=== PATIENT | male | born 1955 | race Caucasian/White ===

== ENCOUNTER 2018-05-02 16:44 | Inpatient (IN) ==
[2018-05-02] MEDS ORDERED: 0.9 % Sodium Chloride 1,000 ML IVC ONE (17:05)
--- NOTE | 2018-05-02 17:40 | Emergency Department Note ---
Disposition Clinical Impression: Alcoholic liver disease Ascites Qualifiers: Ascites type: due to alcoholic cirrhosis Qualified Code(s): K70.31 - Alcoholic cirrhosis of liver with ascites Alcoholic cirrhosis Qualifiers: Ascites presence: with ascites Qualified Code(s): K70.31 - Alcoholic cirrhosis of liver with ascites Disposition: Admitted As Inpatient Condition: Good Referrals: NONE,PCP [Non-Partnered Physician] - Forms: ED Satisfaction Letter, Work/School Release Time of Disposition: 19:42 General Adult HPI - General Chief complaint: ED Abdominal Pain Stated complaint: Ascities Time Seen by Provider: 05/02/18 16:53 Source: patient, family Limitations: no limitations Nursing Notes Reviewed: Yes Vital Signs Reviewed: Yes - History of Present Illness HPI Narrative: Complaining of being yellow and having a distended abdomen. Denies any fevers does report occasional chills. No cough. No chest pain. Does have shortness of breath associated with the pressure from his abdomen. Pain Scale: 0 - Related Data Home Medications Medication Instructions Recorded Confirmed No Known Home Drugs 05/02/18 05/02/18 Allergies Allergy/AdvReac Type Severity Reaction Status Date / Time No Known Allergies Allergy Verified 05/02/18 19:14 All systems ED: reviewed and negative except as stated. Constitutional: Reports: chills. Denies: fever ENT ED: Denies: congestion Cardiovascular: Denies: chest pain, palpitations, syncope Respiratory: Denies: cough, dyspnea Gastrointestinal: Denies: abdominal pain, nausea, vomiting, diarrhea, hematemesis, melena, hematochezia Genitourinary: Denies: urgency, dysuria, frequency Integumentary: Reports: other (Yellow color to skin). Denies: rash Past Medical History - Past Medical History Attestation: Yes The following information was validated with the patient. Source: patient Medical history: Reports: no medical history Psychiatric history: Reports: no psych history - Social History Smoking Status: Never smoker Alcohol use: Reports: heavy Drug use: Reports: none Physical Exam - General Limitations: no limitations General appearance: alert, in no apparent distress - Head Head exam: atraumatic, normocephalic, normal inspection - Eye Eye exam: Present: normal appearance, PERRL, EOMI - ENT ENT exam: normal exam, normal oropharynx, mucous membranes moist - Neck Neck exam: Present: normal inspection, full ROM, trachea midline - Chest Chest inspection: Present: normal inspection, symmetric chest wall rise - Respiratory Respiratory exam: Present: normal lung sounds bilaterally. Absent: respiratory distress, accessory muscle use - Cardiovascular Cardiovascular exam: Present: normal rhythm, tachycardia, normal heart sounds - Abdominal Exam Abdominal exam: Present: soft, distention, other (Fluid wave). Absent: guarding , rebound, Lund's sign, Rovsing's sign, tenderness at McBurney's Point - Extremities Exam Extremities exam: Present: normal inspection, full ROM, normal capillary refill , pedal edema. Absent: tenderness - Back Exam Back exam: Present: normal inspection, full ROM. Absent: tenderness - Neurological Exam Neurological exam: Present: alert, oriented X3 - Psychiatric Psychiatric exam: Present: normal affect, normal mood - Skin Skin exam: Present: warm, dry, intact, rash (Some small petechiae to his chest) , other (Jaundiced.) Course Course Narrative: Male patient presenting to emergency complaining of a yellow and having a large abdomen. Female patient at bedside states it is been going on for around 3 months. The patient denies any abdominal pain however he does report some shortness of breath associated with the pressure associated from his abdomen. He has never had to have his abdomen drain before. He does report excessive alcohol consumption of approximately 12 beers a day. He states he does not have a history of hepatitis as he was tested for this approximately 6 months ago. He is also reporting a generalized weakness over the past week. The friend at the bedside stating he is sleeping upwards to 20 hours a day. On exam patient is jaundiced. He has scleral jaundice as well as jaundice to his nipple line. He has a distended abdomen with a prominent fluid wave. Lung sounds are clear and heart tones are normal. He is tachycardic. I believe this is secondary to third spacing. We will provide patient with a liter of fluid as well as albumin. We will get a basic lab workup and CT patient's abdomen. I anticipate admission for the patient. - Reevaluation(s) Reevaluation #1: Patient has a large amount of ascites on scan. He is also jaundiced. We have started him on vancomycin and Zosyn. He is initially tachycardic however this resolved with 1 L of fluid. Also ordered him albumin. He has a lactic acidosis. As well as elevated liver enzymes and bilirubin. We have discussed the patient with GI and they state they will follow in the hospital. Patient is well-appearing when I go to reassess him in the room. He is sitting at bedside. We will admit him to the hospital. Time: 19:17 - Consultations Consultation #1: I spoke with GI. They state they will see the Pt in the hospital Time: 19:41 Consultation #2: Dr Tang accepted Pt in stable condition Time: 19:42 Vital Signs Temperature 99.0 F 05/02/18 16:46 Pulse Rate 149 05/02/18 16:46 Respiratory Rate 20 05/02/18 16:46 Blood Pressure 150/100 05/02/18 16:46 O2 Sat by Pulse Oximetry 96 05/02/18 16:46 Temperature 99.0 F 05/02/18 17:01 Pulse Rate 96 05/02/18 17:36 Respiratory Rate 18 05/02/18 17:36 Blood Pressure 130/69 05/02/18 17:36 O2 Sat by Pulse Oximetry 96 05/02/18 17:36 Oxygen Delivery Oxygen Delivery Room Air Medical Decision Making - Medical Records Medical records reviewed: Yes I reviewed the patient's medical records. - Lab Data Lab results reviewed: Yes I reviewed the patient's lab results. Result diagrams: 05/02/18 17:46 05/02/18 17:46 Lab Results 05/02/18 05/02/18 05/02/18 Range/Units 17:30 17:46 17:46 WBC 3.1 L (4.3-11.1) K/mcL RBC 3.87 L (4.19-5.50) M/mcL Hgb 13.7 (12.9-16.9) g/dL Hct 39.4 (37.5-50.1) % MCV 101.8 H (83.0-100.0) fL MCH 35.4 H (28.0-33.3) pg MCHC 34.8 (31.6-35.5) g/dL RDW 15.1 H (11.5-14.5) % Plt Count 49 L (140-400) K/mcL MPV 9.8 (9.4-12.4) fL Immature Gran % 0.6 (0-4) % Seg Neutrophils % 66.2 % Lymphocytes % 14.7 % Monocytes % 16.3 % Eosinophils % 0.6 % Basophils % 1.6 % Neutrophils # 2.1 (1.6-8.9) K/mcL Lymphocytes # 0.5 L (0.6-4.6) K/mcL Monocytes # 0.5 (0.0-1.3) K/mcL Eosinophils # 0.0 (0.0-0.6) K/mcL Basophils # 0.1 (0.0-0.2) K/mcL Platelet Estimate Marked Decrease L (Normal) Immature Plt Fraction 3.7 (1.1-6.1) % PT 18.5 H (9.4-12.1) Seconds INR 1.7 APTT 46.2 H (26.0-36.0) Seconds Sodium (136-145) mEq/L Potassium (3.5-5.1) mEq/L Chloride (98-107) mEq/L Carbon Dioxide (23-29) mEq/L BUN (8-23) mg/dL Creatinine (0.70-1.30) mg/dL Est GFR ( Amer) (> 60) Est GFR (Non-Af Amer) (> 60) BUN/Creatinine Ratio (6-26) Glucose (70-105) mg/dL Calculated Osmolality (280-300) Lactic Acid (0.5-2.2) mmol/L Calcium (8.6-10.3) mg/dL Total Bilirubin (0.3-1.0) mg/dL Direct Bilirubin (0.0-0.2) mg/dL Indirect Bilirubin (0.0-1.2) mg/dL AST (13-39) Units/L ALT (7-52) Units/L Alkaline Phosphatase (34-104) Units/L Serum Total Protein (6.4-8.9) g/dL Albumin (3.5-5.7) g/dL Globulin (2.4-3.5) g/dL Albumin/Globulin Ratio (1.1-2.2) Lipase (11-82) Units/L Urine Color [place] A (Yellow) Urine Clarity Cloudy A (Clear) Urine pH 5.5 (5.0-8.0) pH Units Ur Specific [place] 1.028 H (1.010-1.025) Urine Protein 30 H (Neg-Trace) mg/dL Urine Glucose (UA) Normal (Normal) mg/dL Urine Ketones 40 H (Negative) mg/dL Urine Blood Negative (Negative) Urine Nitrite Positive A (Negative) Urine Bilirubin Large H (Negative) Urine Urobilinogen 4.0 H (Normal) mg/dL Ur Leukocyte Esterase Small H (Negative) Urine Microscopic RBC 0-3 (0-3) per hpf Urine Microscopic WBC 0-3 (0-3) per hpf Ur Squamous Epith Cells Moderate H (None-Few) per lpf Urine Bacteria None Seen (None-Few) per hpf Hyaline Casts None Seen (None-Few) per lpf Urine Mucus Moderate H (Few) Ur Culture Indicated? YES A (NO) 05/02/18 05/02/18 Range/Units 17:46 17:46 WBC (4.3-11.1) K/mcL RBC (4.19-5.50) M/mcL Hgb (12.9-16.9) g/dL Hct (37.5-50.1) % MCV (83.0-100.0) fL MCH (28.0-33.3) pg MCHC (31.6-35.5) g/dL RDW (11.5-14.5) % Plt Count (140-400) K/mcL MPV (9.4-12.4) fL Immature Gran % (0-4) % Seg Neutrophils % % Lymphocytes % % Monocytes % % Eosinophils % % Basophils % % Neutrophils # (1.6-8.9) K/mcL Lymphocytes # (0.6-4.6) K/mcL Monocytes # (0.0-1.3) K/mcL Eosinophils # (0.0-0.6) K/mcL Basophils # (0.0-0.2) K/mcL Platelet Estimate (Normal) Immature Plt Fraction (1.1-6.1) % PT (9.4-12.1) Seconds INR APTT (26.0-36.0) Seconds Sodium 137 (136-145) mEq/L Potassium 3.6 (3.5-5.1) mEq/L Chloride 102 (98-107) mEq/L Carbon Dioxide 24 (23-29) mEq/L BUN 6 L (8-23) mg/dL Creatinine 0.53 L (0.70-1.30) mg/dL Est GFR ( Amer) > 60 (> 60) Est GFR (Non-Af Amer) > 60 (> 60) BUN/Creatinine Ratio 11 (6-26) Glucose 120 H (70-105) mg/dL Calculated Osmolality 283 (280-300) Lactic Acid 2.3 H (0.5-2.2) mmol/L Calcium 8.4 L (8.6-10.3) mg/dL Total Bilirubin 9.3 H (0.3-1.0) mg/dL Direct Bilirubin 5.2 H (0.0-0.2) mg/dL Indirect Bilirubin 4.1 H (0.0-1.2) mg/dL AST 129 H (13-39) Units/L ALT 48 (7-52) Units/L Alkaline Phosphatase 155 H (34-104) Units/L Serum Total Protein 6.9 (6.4-8.9) g/dL Albumin 3.0 L (3.5-5.7) g/dL Globulin 3.9 H (2.4-3.5) g/dL Albumin/Globulin Ratio 0.8 L (1.1-2.2) Lipase 11 (11-82) Units/L Urine Color (Yellow) Urine Clarity (Clear) Urine pH (5.0-8.0) pH Units Ur Specific [place] (1.010-1.025) Urine Protein (Neg-Trace) mg/dL Urine Glucose (UA) (Normal) mg/dL Urine Ketones (Negative) mg/dL Urine Blood (Negative) Urine Nitrite (Negative) Urine Bilirubin (Negative) Urine Urobilinogen (Normal) mg/dL Ur Leukocyte Esterase (Negative) Urine Microscopic RBC (0-3) per hpf Urine Microscopic WBC (0-3) per hpf Ur Squamous Epith Cells (None-Few) per lpf Urine Bacteria (None-Few) per hpf Hyaline Casts (None-Few) per lpf Urine Mucus (Few) Ur Culture Indicated? (NO) - Radiology Data Radiology results reviewed: Yes I reviewed the patient's radiology results. Abdomen/Pelvis CT 05/02/18 17:02 IMPRESSION: Ascites throughout the abdomen and pelvis. The liver is peripherally nodular and heterogeneous with numerous internal presumed regenerating nodules. Findings are compatible with advanced cirrhosis. Numerous venous varicosities within the upper abdomen are identified. Cholelithiasis. No evidence for nephrolithiasis or bowel obstruction/inflammation. D/ / Vaughn Lopes MD / Vaughn Lopes MD Interpreting Provider: Vaughn Lopes MD - EKG Data EKG #1 EKG attestation: Yes I reviewed and interpreted this EKG. EKG results narrative: SVT at a rate of 151. QRS duration is 113. QT is 298. QTC is 384. No signs of acute ischemia. He was sinus rhythm on previous EKG dated 07/08/2012.
[2018-05-02 17:44] LABS: Bilirubin,Urine Large (Negative); Blood,Urine Negative (Negative); Clarity,Urine Cloudy (Clear); Color,Urine Orange (Yellow); Glucose,Urine (UA) Normal (Normal); Ketones,Urine 40 mg/dL (Negative); Leukocyte Esterase,Urine Small (Negative); Nitrite,Urine Positive (Negative); PH,Urine 5.5 pH Units (5.0-8.0); Protein,Urine 30 mg/dL (Neg-Trace); Specific Gravity,Urine 1.028 (1.010-1.025)
[2018-05-02 17:46] LABS: Bacteria,Urine None Seen per hpf (None-Few); Hyaline Casts,Urine None Seen per lpf (None-Few); Squamous Epithelial Cell,Urine Moderate per lpf (None-Few); WBC,Urine 0-3 per hpf (0-3)
--- NOTE | 2018-05-02 17:47 | Emergency Department Note ---
Disposition Clinical Impression: Alcoholic liver disease Ascites Qualifiers: Ascites type: due to alcoholic cirrhosis Qualified Code(s): K70.31 - Alcoholic cirrhosis of liver with ascites Disposition: Still a Patient Referrals: NONE,PCP [Non-Partnered Physician] - Forms: ED Satisfaction Letter, Work/School Release General Adult HPI - General Chief complaint: ED Abdominal Pain Stated complaint: Ascities Time Seen by Provider: 05/02/18 16:53 Source: patient, family Limitations: no limitations Nursing Notes Reviewed: Yes Vital Signs Reviewed: Yes - History of Present Illness Pain Scale: 0 - Related Data Allergies Allergy/AdvReac Type Severity Reaction Status Date / Time No Known Allergies Allergy Verified 05/02/18 16:48 Constitutional: Reports: chills. Denies: fever ENT ED: Denies: congestion Cardiovascular: Denies: chest pain, palpitations, syncope Respiratory: Denies: cough, dyspnea Gastrointestinal: Denies: abdominal pain, nausea, vomiting, diarrhea, hematemesis, melena, hematochezia Genitourinary: Denies: urgency, dysuria, frequency Integumentary: Reports: other (Yellow color to skin). Denies: rash Past Medical History - Past Medical History Medical history: Reports: no medical history Psychiatric history: Reports: no psych history - Social History Smoking Status: Never smoker Alcohol use: Reports: heavy Drug use: Reports: none Physical Exam - General Limitations: no limitations General appearance: alert, in no apparent distress Course - Reevaluation(s) Reevaluation #1: Attestation note I examined this patient and my medical decision-making was reviewed with the emergency medicine resident. I agree with the documented findings, disposition and treatment plan as described except to the extent set forth below. Patient seen with emergency medicine resident Dr. Corinne Romero, Please see a copy of his note for details of the H&P, ED evaluation, management and disposition. I have independently evaluated the patient and confirmed appropriate portions of the history and physical exam. Briefly: 62-year-old alcoholic male with no prior history of a cold liver disease treatments. Resents with abdominal distention and dyspnea secondary to that. He is also has scleral icterus and jaundice of the skin. Complaining of fatigue as well. Patient clearly has ascites and distended abdomen. Patient will get screening labs IV fluids since he is tachycardic to the 150s he will get a therapeutic and diagnostic abdominal paracentesis with admission being entertained. Providing 45 minutes of critical care service for this patient. Disposition pending Time: 17:44 Vital Signs Temperature 99.0 F 05/02/18 16:46 Pulse Rate 149 05/02/18 16:46 Respiratory Rate 20 05/02/18 16:46 Blood Pressure 150/100 05/02/18 16:46 O2 Sat by Pulse Oximetry 96 05/02/18 16:46 Temperature 99.0 F 05/02/18 17:01 Pulse Rate 149 05/02/18 17:01 Respiratory Rate 20 05/02/18 17:01 Blood Pressure 150/100 05/02/18 17:01 O2 Sat by Pulse Oximetry 96 05/02/18 17:01 Oxygen Delivery Oxygen Delivery Room Air
[2018-05-02 17:56] LABS: Mucus,Urine Moderate (Few); RBC,Urine 0-3 per hpf (0-3)
[2018-05-02 18:18] LABS: Basophils # 0.1 K/mcL (0.0-0.2); Basophils % 1.6 %; Eosinophils % 0.6 %; Hematocrit 39.4 % (37.5-50.1); Hemoglobin 13.7 g/dL (12.9-16.9); Immature Granulocytes % 0.6 % (0-4); Immature Platelets 3.7 % (1.1-6.1); Lymphocytes # 0.5 K/mcL (0.6-4.6); Lymphocytes % 14.7 %; Mean Corpuscular HGB Conc 34.8 g/dL (31.6-35.5); Mean Corpuscular Hemoglobin 35.4 pg (28.0-33.3); Mean Corpuscular Volume 101.8 fL (83.0-100.0); Mean Platelet Volume 9.8 fL (9.4-12.4); Monocytes # 0.5 K/mcL (0.0-1.3); Monocytes % 16.3 %; Neutrophils # 2.1 K/mcL (1.6-8.9); Red Blood Count 3.87 M/mcL (4.19-5.50); Red Cell Distribution Width 15.1 % (11.5-14.5); Segmented Neutrophils % 66.2 %
[2018-05-02 18:28] LABS: INR 1.7; Prothrombin Time 18.5 Seconds (9.4-12.1)
[2018-05-02 18:31] LABS: Activated Partial Thrombo Time 46.2 Seconds (26.0-36.0)
[2018-05-02 18:37] LABS: Alanine Aminotransferase 48 Units/L (7-52); Albumin/Globulin Ratio 0.8 (1.1-2.2); Alkaline Phosphatase 155 Units/L (34-104); Aspartate Amino Transferase 129 Units/L (13-39); BUN/Creatinine Ratio 11 (6-26); Bilirubin,Direct 5.2 mg/dL (0.0-0.2); Bilirubin,Indirect 4.1 mg/dL (0.0-1.2); Bilirubin,Total 9.3 mg/dL (0.3-1.0); Blood Urea Nitrogen 6 mg/dL (8-23); Calcium 8.4 mg/dL (8.6-10.3); Carbon Dioxide 24 mEq/L (23-29); Chloride 102 mEq/L (98-107); Globulin 3.9 g/dL (2.4-3.5); Glucose 120 mg/dL (70-105); Lipase 11 Units/L (11-82); Osmolality,Calculated 283 (280-300); Potassium 3.6 mEq/L (3.5-5.1); Sodium 137 mEq/L (136-145); Total Protein 6.9 g/dL (6.4-8.9); eGFR For African Americans > 60 (> 60); eGFR For Non-African Americans > 60 (> 60)
[2018-05-02 18:39] LABS: Platelet Count 49 K/mcL (140-400)
[2018-05-02 18:40] LABS: Platelet Estimate Marked Decrease (Normal)
[2018-05-02] MEDS ORDERED: Piperacillin/Tazobactam 3.375 GM in 0.9 % Sodium Chloride Mini Bag 100 ML IVPB ONE (18:44)
[2018-05-02] MEDS ORDERED: Naloxone 0.4 MG/ML INJ IVP PRN (21:38)
--- NOTE | 2018-05-02 21:50 | Internal Med History&Physical ---
Date of Encounter: 05/02/18 Time of Encounter: 20:00 Internal Medicine - H&P: HPI Chief complaint: Weakness Admitted From: Home Plans for Post Hospital Care: Home History of present illness: Mr. Camacho is a 62 year old male presented to ER for generalized weakness for a few days. Past medical history is significant for cirrhosis due to alcoholism. Patient said he has generalized weakness for a few days. With nausea. Have vomited once. The vomiting are clear liquid, no dark color or red blood in it. Patient denies fever, abdominal pain. Patient has increased abdominal distention. In the emergency room, patient was found tachycardia with heart rate 140s, heart rate improved after fluid bolus. Patient was started antibiotics and admitted for further management. Past Med Surg Social Fam HX - Past Medical History Medical history: no medical history Psychiatric history: no psych history - Past Surgical History Additional surgical history: hernia repair - Social History Smoking Status: Never smoker Alcohol use: heavy Drug use: none - Family History Mother History Unknown: Yes Internal Medicine - H&P: Meds No Known Home Drugs 05/02/18 [History] 3 Allergy/AdvReac Type Severity Reaction Status Date / Time No Known Allergies Allergy Verified 05/02/18 19:14 All Systems PM: A 10-system review of systems was performed and is negative for pertinent findings except as documented above in the HPI. - Constitutional Vitals: Temp Pulse Resp BP Pulse Ox 98.1 F 145 18 151/107 97 05/02/18 20:54 05/02/18 20:54 05/02/18 20:54 05/02/18 20:54 05/02/18 20:54 General appearance: Present: A&O X 3, no acute distress, answers questions appropriately - Head Head exam: Present: atraumatic, normocephalic - Eye Eye exam: Present: PERRL, conjuntiva pink, sclera anicteric Pupils: Present: PERRL - Neck Neck exam general surgery: Present: supple, trachea midline. Absent: lymphadenopathy - Respiratory Respiratory exam: Present: CTAB. Absent: accessory muscle use, rales, rhonchi, wheezes - Cardiovascular Cardiovascular exam: Present: RRR, +S1, +S2. Absent: diastolic murmur, gallop, rubs, systolic murmur - GI/Abdominal GI/Abdominal exam: Present: distended, normal bowel sounds, soft, no peritoneal signs. Absent: tenderness - Extremities Exam Extremities exam: Present: warm, radial pulses palpable and symmetrical. Absent : calf tenderness, cyanotic, pedal edema - Neurological Exam Neurological exam: Present: CN II-XII intact, oriented X3, no focal deficits. Absent: pronater drift, facial droop, speech deficit - Skin Skin exam: Present: dry, intact Internal Med - H&P Results - Labs CBC & Chem 7: 05/02/18 17:46 05/02/18 17:46 - Assessment and plan (1) Alcoholism Current Visit: Yes Status: Acute Assessment and plan: Patient has history of alcoholism. Last alcohol use was 2 days ago. No signs of withdrawal at this point. - Place patient on CIWA protocol - Banana bag 3 - Closely monitor patient (2) UTI (urinary tract infection) Current Visit: Yes Status: Acute Assessment and plan: Urine analysis shows possible UTI. Will continue Zosyn. Follow-up blood and urine culture. Qualifiers: Urinary tract infection type: acute cystitis Hematuria presence: without hematuria Qualified Code(s): N30.00 - Acute cystitis without hematuria (3) DVT prophylaxis Current Visit: Yes Status: Acute Assessment and plan: EPCDs (4) Alcoholic cirrhosis Current Visit: Yes Status: Acute Assessment and plan: Patient has history of cirrhosis, probably most likely due to alcoholism. Patient said he had hepatitis test already and negative for hep C and hep B. - Consult GI for further management - Start beta hyacinth now for tachycardia and venous varicosis. Qualifiers: Ascites presence: with ascites Qualified Code(s): K70.31 - Alcoholic cirrhosis of liver with ascites (5) Ascites Current Visit: Yes Status: Acute Assessment and plan: CT abdomen shows ascites. Patient denies history of paracentesis. - Patient has tachycardia and leukocytopenia, patient has nausea and weakness and vomiting, need to rule out SBP. - Empirically start Zosyn, IR paracentesis in AM - GI consult - Patient's tachycardia probably due to hypovolemic status, will give albumin infusion and closely monitor patient. Qualifiers: Ascites type: due to alcoholic cirrhosis Qualified Code(s): K70.31 - Alcoholic cirrhosis of liver with ascites - Time Spent With Patient Total time spent is greater than 50% in coordination of care (as documented) at patient's floor/unit and/or counseling patient: 40 minutes Greater than 35 minutes
[2018-05-02] MEDS ORDERED: Ibuprofen 400 MG TABLET PO PRN (23:53)
[2018-05-02] MEDS ORDERED: *HR* LORazepam 2 MG/ML VIAL IVP PRN ×3 (23:54→23:55)
[2018-05-02] MEDS ORDERED: Ondansetron 4 MG/2 ML VIAL IVP PRN (23:55)
[2018-05-03] MEDS: Albumin 25% 25gram/100mL 25 GM/100 ML IV.SOLN IVPB SCH ×3 (00:22→16:38)
[2018-05-03] MEDS ORDERED: Piperacillin/Tazobactam 3.375 GM in 0.9 % Sodium Chloride Mini Bag 100 ML IVPB SCH (02:00)
[2018-05-03 07:23] LABS: Basophils % 1.5 %; Monocytes % 15.9 %
[2018-05-03 07:24] LABS: Basophils # 0.1 K/mcL (0.0-0.2); Eosinophils # 0.1 K/mcL (0.0-0.6); Eosinophils % 1.8 %; Hematocrit 39.3 % (37.5-50.1); Hemoglobin 13.8 g/dL (12.9-16.9); Immature Platelets 3.7 % (1.1-6.1); Lymphocytes # 0.5 K/mcL (0.6-4.6); Lymphocytes % 13.8 %; Mean Corpuscular HGB Conc 35.1 g/dL (31.6-35.5); Mean Corpuscular Hemoglobin 35.8 pg (28.0-33.3); Mean Corpuscular Volume 101.8 fL (83.0-100.0); Mean Platelet Volume 10.7 fL (9.4-12.4); Monocytes # 0.5 K/mcL (0.0-1.3); Neutrophils # 2.2 K/mcL (1.6-8.9); Red Blood Count 3.86 M/mcL (4.19-5.50); Red Cell Distribution Width 14.8 % (11.5-14.5)
[2018-05-03 07:30] LABS: INR 1.8; Prothrombin Time 19.7 Seconds (9.4-12.1)
[2018-05-03 07:48] LABS: Alanine Aminotransferase 44 Units/L (7-52); Albumin 3.1 g/dL (3.5-5.7); Albumin/Globulin Ratio 0.9 (1.1-2.2); Alkaline Phosphatase 144 Units/L (34-104); Aspartate Amino Transferase 115 Units/L (13-39); BUN/Creatinine Ratio 10 (6-26); Bilirubin,Total 10.2 mg/dL (0.3-1.0); Blood Urea Nitrogen 5 mg/dL (8-23); Calcium 8.2 mg/dL (8.6-10.3); Carbon Dioxide 22 mEq/L (23-29); Chloride 104 mEq/L (98-107); Globulin 3.5 g/dL (2.4-3.5); Glucose 89 mg/dL (70-105); Magnesium 1.6 mg/dL (1.6-2.6); Osmolality,Calculated 279 (280-300); Potassium 3.7 mEq/L (3.5-5.1); Sodium 136 mEq/L (136-145); Total Protein 6.6 g/dL (6.4-8.9); eGFR For African Americans > 60 (> 60); eGFR For Non-African Americans > 60 (> 60)
[2018-05-03 07:53] LABS: Platelet Count 43 K/mcL (140-400)
[2018-05-03] MEDS ORDERED: cefTRIAXone 1,000 MG in Water for inj. (sterile) 20 ML 10 ML IVP SCH (09:00)
[2018-05-03 10:30] LABS: RBC,Peritoneal Fluid 0.002 M/mcL
[2018-05-03 10:33] LABS: Appearance of Peritoneal Fl CLEAR (Clear)
[2018-05-03 10:50] LABS: Glucose,Peritoneal Fluid 103 mg/dL (No Ref Range); LDH,Peritoneal Fluid 42 Units/L (No Ref Range); Total Protein,Peritoneal Fluid < 3.0 g/dL (No Ref Range)
--- NOTE | 2018-05-03 11:32 | Internal Med Progress Note ---
Date of Encounter: 05/03/18 Time of Encounter: 11:32 - Assessment and plan (1) Ascites Current Visit: Yes Status: Acute Assessment and plan: s/p paracentensis SAAG >1.5 SBP ruled out, TNC 170 Await cultures Continue ceftriaxone Qualifiers: Ascites type: due to alcoholic cirrhosis Qualified Code(s): K70.31 - Alcoholic cirrhosis of liver with ascites (2) Alcoholic cirrhosis Current Visit: Yes Status: Acute Assessment and plan: Patient has history of cirrhosis, probably most likely due to alcoholism. Patient said he had hepatitis test already and negative for hep C and hep B. GI eval noted Edutaed about screening EGD Family wants it only if its emergent, Hb is stable and no hx of bleeds He does not have insurance and is considering doing it as outpatient GI is following Qualifiers: Ascites presence: with ascites Qualified Code(s): K70.31 - Alcoholic cirrhosis of liver with ascites (3) Alcoholism Current Visit: Yes Status: Acute Assessment and plan: Continue CIWA protocol Continue M/T/F (4) UTI (urinary tract infection) Current Visit: Yes Status: Suspected Assessment and plan: Suspected Continue ceftriaxone-Day 1, follow urine culture Qualifiers: Urinary tract infection type: acute cystitis Hematuria presence: without hematuria Qualified Code(s): N30.00 - Acute cystitis without hematuria (5) DVT prophylaxis Current Visit: Yes Status: Acute Assessment and plan: EPCDs (6) Thrombocytopenia Current Visit: Yes Status: Acute Assessment and plan: PLT 49 Possibly due to alcoholic liver cirrhosis Transfuse for PLT <10K, or bleeding Continue to monitor - Time Spent With Patient Total time spent is greater than 50% in coordination of care (as documented) at patient's floor/unit and/or counseling patient: - Subjective Interval history: Seen and examined at the bedside with his son and RN Per son, they have no insurance and would prefer EGD done non-emergently He is s/p paracentensis with 4.8 L removed Still receiving albumin No new complains Cultures pending Last drink was 3 days ago Changed Zosyn to ceftriaxone for SBP coverage - Constitutional Vitals: Temp Pulse Resp BP Pulse Ox 98.5 F 98 17 153/93 95 05/03/18 07:26 05/03/18 07:26 05/03/18 07:26 05/03/18 07:26 05/03/18 07:26 General appearance: Present: A&O X 3, pleasant, no acute distress, obese, answers questions appropriately - Head Head exam: Present: atraumatic, normocephalic - Eye Eye exam: Present: PERRL, conjuntiva pink, sclera anicteric Pupils: Present: PERRL - Neck Neck exam general surgery: Present: supple, trachea midline. Absent: lymphadenopathy - Respiratory Respiratory exam: Present: CTAB. Absent: accessory muscle use, rales, rhonchi, wheezes - Cardiovascular Cardiovascular exam: Present: RRR, +S1, +S2. Absent: diastolic murmur, gallop, rubs, systolic murmur - GI/Abdominal GI/Abdominal exam: Absent: tenderness Additional comments: obese, distended abdominal wall veins, no tenderness - Extremities Exam Extremities exam: Present: pedal edema (2+ piting pedal edema), warm, radial pulses palpable and symmetrical. Absent: calf tenderness, cyanotic - Neurological Exam Neurological exam: Present: alert, CN II-XII intact, oriented X3, no focal deficits. Absent: pronater drift, facial droop, speech deficit - Skin Skin exam: Present: dry, intact Internal Medicine: Result - Labs CBC & Chem 7: 05/03/18 06:48 05/03/18 06:48 Labs: Short CBC 05/03/18 Range/Units 06:48 WBC 3.3 L (4.3-11.1) K/mcL Hgb 13.8 (12.9-16.9) g/dL Hct 39.3 (37.5-50.1) % Plt Count 43 L (140-400) K/mcL Neutrophils # 2.2 (1.6-8.9) K/mcL BMP 05/03/18 06:48 Sodium 136 Potassium 3.7 Chloride 104 Carbon Dioxide 22 L BUN 5 L Creatinine 0.49 L Glucose 89 Calcium 8.2 L Liver Function 05/03/18 Range/Units 06:48 Total Bilirubin 10.2 H (0.3-1.0) mg/dL AST 115 H (13-39) Units/L ALT 44 (7-52) Units/L Alkaline Phosphatase 144 H (34-104) Units/L Albumin 3.1 L (3.5-5.7) g/dL - ABG Interpretation ABG results: PT/INR, D-dimer PT 19.7 Seconds (9.4-12.1) H 05/03/18 06:48 - VTE Documentation of Mechanical Device: Intermittent pneumatic compression device Consult Discharge Plan - Plan Referrals: Umair Byrne DO [Primary Care Provider] -
--- NOTE | 2018-05-03 11:58 | Gastroenterology Consult Note ---
Date of Encounter: 05/03/18 Time of Encounter: 10:50 - Assessment and plan (1) Ascites Current Visit: Yes Status: Acute Assessment and plan: Due to alcoholic cirrhosis. S/p paracentesis and is feeling much better. Will likely need discharged home on lasix and aldactone. Qualifiers: Ascites type: due to alcoholic cirrhosis Qualified Code(s): K70.31 - Alcoholic cirrhosis of liver with ascites (2) Alcoholic cirrhosis Current Visit: Yes Status: Acute Assessment and plan: Pt is advised abstinence from ETOH, and to avoid tylenol. He needs EGD for varices surveillance. Will discuss with Dr Bagley if this needs to be inpt or outpatient. Qualifiers: Ascites presence: with ascites Qualified Code(s): K70.31 - Alcoholic cirrhosis of liver with ascites - Time Spent With Patient Total time spent is greater than 50% in coordination of care (as documented) at patient's floor/unit and/or counseling patient: GI History of Present Illness - Data of Consult Patient: known to practice within the last 3 years Consult date: 05/03/18 Requesting Physician: Demarco Malhotra MD - Consult Narrative Reason for consult: alcoholic cirrhosis History of present illness: Mr. Camacho is a 62 year old male presented to ER for generalized weakness, abdominal distention and "being yellow" for a few days. He denies any past medical conditions. He states he was told he had cirrhosis approximately 3 years ago and was seen at [facility] for scopes, he quit drinking for around a year but has been drinking daily for the past 2 years. He admits to drinking approx 12 beers a day, has not drank in the past 3 days. He reports increasing abdominal girth for the past several months. He was trying to wait until he got insurance before he went to the Dr, but due to weakness and shortness of breath he was unable to wait any longer. He admits to nausea and one episode of vomiting. The vomiting are clear liquid, no dark color or red blood in it. Patient denies fever, abdominal pain. Patient has increased abdominal distention. In the emergency room, patient was found tachycardia with heart rate 140s, heart rate improved after fluid bolus. Patient was started antibiotics and admitted for further management. WBCs 3.3, hemoglobin 13.8, platelets 43, INR 1.8, PT 19.7, sodium 136, total bili 10.2, AST 15, ALT 44 alkaline phosphatase 144, albumin 3.1. CT of the abdomen showed cirrhosis ascites throughout the abdomen and pelvis numerous venous varicosities within the upper abdomen and cholelithiasis. Meld sodium score 24. Child class C. Discriminant function 45.2 poor prognosis. He is status post paracentesis and states he feels much better. Procedures: EGD/colon 2015 at [facility] NSAIDS: motrin Anticoagulants: denies Past Med Surg Social Fam HX - Past Medical History Medical history: no medical history Psychiatric history: no psych history - Past Surgical History Additional surgical history: hernia repair - Social History Smoking Status: Never smoker Alcohol use: heavy Drug use: none - Family History Mother History Unknown: Yes Review of Systems: GI: as per [facility]: denies fever, has some chills EYES: denies yellow discoloration ENT: denies pain with swallowing or difficulty swallowing CARDIO: denies chest pain, palpitations RESP: Shortness of breath with exertion : denies change in color of urine NEURO: weakness HEME: Denies any bruising MS: denies joint pain, joint swelling or back pain. DERM: denies rash or itching PSYCH: Denies history of anxiety or depression - Constitutional Vitals: Temp Pulse Resp BP Pulse Ox 98.5 F 98 17 153/93 95 05/03/18 07:26 05/03/18 07:26 05/03/18 07:26 05/03/18 07:26 05/03/18 07:26 Exam: CONSTITUTIONAL:~alert, no acute distress.~HEAD:~normocephalic.~EYES:~ jaundice.~ NECK:~no obvious swelling.~HEART:~regular rate and rhythm, no murmurs.~LUNGS:~ bilateral good air entry.~ABDOMEN:~rounded, distended, soft, non tender, no masses palpable, no organomegaly.~RECTAL EXAM:~Deferred.~EXTREMITIES:~no clubbing, cyanosis, 2+ BLE edema.~SKIN:~jaundice noted.~NEUROLOGIC:~no obvious focal defect.~~~~ Results - Labs CBC & Chem 7: 05/03/18 06:48 05/03/18 06:48 Labs: Last Result Calcium 8.2 mg/dL (8.6-10.3) L 05/03/18 06:48 Peritoneal Appearance CLEAR (Clear) 05/03/18 09:32 Peritoneal Volume 58.0 mL 05/03/18 09:32 Peritoneal RBC 0.002 M/mcL (0.000-0.002) 05/03/18 09:32 Periton Tot Nuc Cells 179 TNC/mcL (0-300) 05/03/18 09:32 Peritoneal Tot Protein < 3.0 g/dL (No Ref Range) 05/03/18 09:32 Peritoneal Albumin < 1.5 g/dL (No Ref Range) 05/03/18 09:32 Peritoneal LDH 42 Units/L (No Ref Range) 05/03/18 09:32 Peritoneal Glucose 103 mg/dL (No Ref Range) 05/03/18 09:32 Entire Visit Hgb 13.8 g/dL (12.9-16.9) 05/03/18 06:48 Hct 39.3 % (37.5-50.1) 05/03/18 06:48 PT 19.7 Seconds (9.4-12.1) H 05/03/18 06:48 Total Bilirubin 10.2 mg/dL (0.3-1.0) H 05/03/18 06:48 AST 115 Units/L (13-39) H 05/03/18 06:48 ALT 44 Units/L (7-52) 05/03/18 06:48 Lipase 11 Units/L (11-82) 05/02/18 17:46 Acetaminophen < 10 mcg/mL (10-20) L 05/02/18 17:46 - ABG ABG results: PT/INR, D-dimer PT 19.7 Seconds (9.4-12.1) H 05/03/18 06:48 Consult Discharge Plan - Plan Referrals: Umair Byrne DO [Primary Care Provider] -
[2018-05-03] MEDS ORDERED: Furosemide 40 MG TABLET PO SCH (14:30)
[2018-05-03] MEDS ORDERED: Spironolactone 25 MG TABLET PO SCH (14:30)
--- NOTE | 2018-05-03 16:31 | Electrocardiograph Report ---
[address] [address] Test Date: 2018-05-02 Pat Name: Reginaldo Camacho Department: 104 Room: 2A25 Gender: M [employer] Founder: ALYSON : 1955 Requested By: Michael Gamez Order Number: [id number] Reading MD: Magy Dumont Measurements Intervals [place] Rate: 151 P: UT: 0 QRS: 19 QRSD: 113 T: 46 QT: 298 QTc: 384 Interpretive Statements SUPRAVENTRICULAR TACHYCARDIA INTRAVENTRICULAR CONDUCTION DELAY NONSPECIFIC ST & T-WAVE ABNORMALITY ABNORMAL RHYTHM ECG Electronically Signed On 05-03-2018 16:30:11 EDT by Magy Dumont
[2018-05-03] MEDS ORDERED: Thiamine (B-1) 100 MG, Folic Acid 1 MG, MVI, adult with vitamin K 10 ML in 0.9 % Sodi... IVPB SCH (18:00)
[2018-05-03] MEDS ORDERED: Perflutren Lipid Microsphere 1.3 ML in 0.9 % Sodium Chloride 8.7 ML IVP ONE (20:27)
[2018-05-04 04:57] LABS: Basophils % 1.3 %; Immature Granulocytes % 0.3 % (0-4); Red Cell Distribution Width 14.7 % (11.5-14.5)
[2018-05-04 04:59] LABS: Eosinophils # 0.1 K/mcL (0.0-0.6); Eosinophils % 2.9 %; Hematocrit 39.1 % (37.5-50.1); Hemoglobin 13.3 g/dL (12.9-16.9); Immature Platelets 3.8 % (1.1-6.1); Lymphocytes # 0.5 K/mcL (0.6-4.6); Lymphocytes % 17.3 %; Mean Corpuscular Hemoglobin 35.3 pg (28.0-33.3); Mean Corpuscular Volume 103.7 fL (83.0-100.0); Mean Platelet Volume 10.1 fL (9.4-12.4); Monocytes # 0.5 K/mcL (0.0-1.3); Monocytes % 15.7 %; Red Blood Count 3.77 M/mcL (4.19-5.50); Segmented Neutrophils % 62.5 %
[2018-05-04 05:05] LABS: Neutrophils # 1.9 K/mcL (1.6-8.9); Platelet Count 42 K/mcL (140-400)
[2018-05-04 05:20] LABS: BUN/Creatinine Ratio 13 (6-26); Blood Urea Nitrogen 7 mg/dL (8-23); Calcium 8.3 mg/dL (8.6-10.3); Carbon Dioxide 24 mEq/L (23-29); Chloride 103 mEq/L (98-107); Glucose 96 mg/dL (70-105); Osmolality,Calculated 278 (280-300); Potassium 3.7 mEq/L (3.5-5.1); Sodium 135 mEq/L (136-145); eGFR For African Americans > 60 (> 60); eGFR For Non-African Americans > 60 (> 60)
[2018-05-04] MEDS ORDERED: Furosemide 20 MG TABLET PO SCH (09:00)
[2018-05-04 11:20] VITALS: BP 122/81
--- NOTE | 2018-05-04 12:54 | Discharge Summary ---
- NOTES TO OUTPATIENT PROVIDER Notes to Outpatient Provider: 62 m with hx of alcohol abuse, was admitted for management of shortness of breath likely secondary to massive ascites. He is s/ p paracentensis with 4.8 L removes, work up also showed tramsnaminitis ( alcoholic pattern). Patient opted for outpatient screening EGD rather than being done in-patient due to insurance issues, he is discharged on lasix, spironolactone and multivitamins, ensure follow up with GI/Hepatology. Date of Encounter: 05/04/18 Time of Encounter: 12:51 - Discharge Diagnosis (1) Ascites Priority: Primary Status: Acute Qualifiers: Ascites type: due to alcoholic cirrhosis Qualified Code(s): K70.31 - Alcoholic cirrhosis of liver with ascites (2) Alcoholic cirrhosis Priority: Primary Status: Acute Qualifiers: Ascites presence: with ascites Qualified Code(s): K70.31 - Alcoholic cirrhosis of liver with ascites (3) Alcoholism Priority: Secondary Status: Chronic (4) UTI (urinary tract infection) Priority: Primary Status: Ruled-out Qualifiers: Urinary tract infection type: acute cystitis Hematuria presence: without hematuria Qualified Code(s): N30.00 - Acute cystitis without hematuria (5) DVT prophylaxis Priority: Primary Status: Acute (6) Thrombocytopenia Priority: Primary Status: Chronic Hospital course: Mr. Camacho is a 62 year old male with no significant medical history we will presented to the emergency room with complaints of shortness of breath and abdominal swelling. The patient has a history of alcohol abuse with daily alcohol use. Prior to presentation, his last alcohol intake was 2 days. He also complained of generalized weakness and nausea one episode of vomiting of clear liquid with no dark color or red blood. The patient denied fever and abdominal pain. Was tachycardic on arrival, jaundiced, with distended abdomen chest was clear to auscultation bilaterally. Workup revealed leukopenia and thrombocytopenia, INR was 1.7, chemistry was unremarkable, liver function tests with transaminitis in the alcoholic patent, mild hyperbilirubinemia, lactic acidosis of 2.3, and normal lipase. Urine analysis was dirty. Abdomen and pelvis CAT scan done showed ascites throughout the abdomen and pelvis, and showed nodular liver with numerous regenerating nodules compatible with advanced cirrhosis. Numerous venous varicosities within the upper abdomen where identified. The patient had no cholelithiasis or renal abnormalities. He was admitted inpatient, and started on Cipro for protocol, received IV fluid boluses and albumin, a paracentesis was done with drainage of 4.8 L of clear ascitic fluid, sent for workup, spontaneous bacterial peritonitis was ruled out. Urine culture resulted with no growth. The patient had been on prophylactic antibiotics for his BP however this was discontinued with final culture. Blood culture was also negative. Gastroenterology was consulted for screening EGD, however patient and his son reports that he had no insurance and he would prefer that this is done as outpatient. The patient understands the risks of bleeding from esophageal varices but has decided to proceed screening EGD as outpatient. Was started on metoprolol for blood pressure control, as well as spironolactone and Lasix for his ascites and pedal edema. Echocardiogram done showed preserved ejection fraction. He is seen and evaluated at the bedside this morning, is ambulatory, has no new complaints, and is tolerating his new medications. His discharged in stable clinical condition to follow up with primary care doctor on gastroenterology for EGD. Alcohol cessation strongly encouraged patient educated about his diagnosis. Verbalized understanding of plan. Discharge discussed with: patient, family, nurse, case management - Time Spent with Patient Total time spent providing and/or coordinating discharge services: Greater than 30 minutes - Discharge Medications Prescriptions: Folic Acid 1 mg PO DAILY #30 tablet Furosemide [Lasix] 40 mg PO DAILY #30 tablet Metoprolol [Lopressor] 25 mg PO BID #60 tablet Spironolactone [Aldactone] 100 mg PO DAILY #60 tablet Thiamine (B-1) [Vitamin B-1] 100 mg PO DAILY #30 tablet Home Medications: Folic Acid 1 mg PO DAILY #30 tablet 05/04/18 [Rx] Furosemide [Lasix] 40 mg PO DAILY #30 tablet 05/04/18 [Rx] Metoprolol [Lopressor] 25 mg PO BID #60 tablet 05/04/18 [Rx] Spironolactone [Aldactone] 100 mg PO DAILY #60 tablet 05/04/18 [Rx] Thiamine (B-1) [Vitamin B-1] 100 mg PO DAILY #30 tablet 05/04/18 [Rx] Allergies/Adverse Reactions: 3 Allergy/AdvReac Type Severity Reaction Status Date / Time No Known Allergies Allergy Verified 05/02/18 19:14 Date of admission: 05/02/18 21:38 Primary care physician: Umair Byrne Consults: 05/02/18 21:41 Consult to Gastroenterology [CONS] Routine Consulting Provider: Gastroenterology Ivone Reason for Consult: Cirrhosis, ascites. Called by ER Call Completed: Yes Consult to Interventional Radiology [CONS] Routine Consulting Provider: Radiology Interventional Cols Reason for Consult: Ascites need paracentesis Call Completed: No 05/02/18 21:48 Consult to Information Systems Consultant [CONS] Routine Reason for SW Consult: Alcohol use Discharging clinician: Demarco Malhotra Anticipated date of discharge: 05/04/18 - Constitutional Vitals: Temp Pulse Resp BP Pulse Ox 98.0 F 76 15 122/81 97 05/04/18 11:14 05/04/18 11:14 05/04/18 11:14 05/04/18 11:14 05/04/18 11:14 General appearance: Present: A&O X 3, pleasant, no acute distress, obese, answers questions appropriately - Head Head exam: Present: atraumatic, normocephalic - Eye Eye exam: Present: PERRL, scleral icterus, conjuntiva pink Pupils: Present: PERRL - Neck Neck exam general surgery: Present: supple, trachea midline. Absent: lymphadenopathy - Respiratory Respiratory exam: Present: CTAB. Absent: accessory muscle use, rales, rhonchi, wheezes - Cardiovascular Cardiovascular exam: Present: RRR, +S1, +S2. Absent: diastolic murmur, gallop, rubs, systolic murmur - GI/Abdominal GI/Abdominal exam: Present: normal bowel sounds, soft, no peritoneal signs. Absent: distended, tenderness - Extremities Exam Extremities exam: Present: pedal edema - Neurological Exam Neurological exam: Present: alert, CN II-XII intact, oriented X3, no focal deficits. Absent: pronater drift, facial droop, speech deficit - Skin Skin exam: Present: dry, intact - Patient Status Disposition: Home, Self-Care Condition: Good Functional capacity at discharge: independent ambulation Overall status at discharge: patient is progressing back to baseline - Discharge Instructions Follow Up With: Umair Byrne, [Primary Care Provider] - (Patient will call for an appt. per office...) - Diet and Activity Activity: resume usual activities as tolerated Diet: low fat, low cholesterol, low salt diet - VTE Documentation of Mechanical Device: Intermittent pneumatic compression device
== END 2018-05-04 14:09 | disposition home or self-care (01) | DRG 280 ==
LOC: 2ANU 16:44 → EMEROO 16:44 → 2ANU 20:35 → SUATTDRO 21:38
PROVIDERS: ADMIT Internal Medicine Nephrology; ATTEND Internal Medicine